=== PATIENT | male | born 2000 | race Caucasian/White ===

== ENCOUNTER 2019-06-20 11:12 | Emergency (ER) | payer BC, OTHER ==
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
== END 2019-06-20 14:15 | disposition home or self-care (01) ==
LOC: JD.ED 11:12
DX: Z04.1 Encounter for examination and observation following transport accident (principal)
CPT/HCPCS: 99281; 99283